=== PATIENT | female | born 1950 | race African-American/Black ===

== ENCOUNTER 2020-09-13 15:29 | Emergency (ER) | payer BC ==
[~2020-09-13] VITALS: Ht 157.5 cm; Wt 60.0 kg
[~2020-09-13 15:29] MED LIST: AMLO10TA80 PO; BISO1TAB37 PO; LISI10TA5 PO
[2020-09-13 15:31] VITALS: BP 149/65
[2020-09-13] MEDS ORDERED: MAGNESIUM/ALUMINUM HYDROXIDE/SIMETHICONE 30ML UDC PO STA (16:14)
[2020-09-13] MEDS ORDERED: VISCOUS LIDOCAINE 2% 15 ML UDC PO STA (16:14)
[2020-09-13] MEDS ORDERED: DICYCLOMINE 10 MG/5 ML ORAL SYR PO STA (16:14)
[2020-09-13 17:22] LABS: HEMOGLOBIN. 13.6 g/dL (12.0-16.0); MEAN CORPUSCULAR HEMOGLOBIN 29.4 pg (28.0-32.0); MEAN CORPUSCULAR VOLUME 88.6 fL (81.0-99.0); RED BLOOD CELL COUNT 4.62 mill/uL (4.2-5.4); RED CELL DISTRIBUTION WIDTH 15.2 % (11.6-14.6)
[2020-09-13 17:29] LABS: CHLORIDE 102 mEq/L (98-107)
[2020-09-13] MEDS ORDERED: LACTULOSE 20G/30ML UDC PO ONE (18:00)
[2020-09-13] MEDS ORDERED: MAGNESIUM CITRATE 300ML SOLUTION PO ONE (18:00)
[2020-09-13] MEDS ORDERED: SODIUM CHLORIDE 0.9% 1,000 ML IV ONE (18:00)
== END 2020-09-13 18:37 | disposition left against medical advice (07) ==
LOC: ER 15:29
DX: R10.9 Unspecified abdominal pain (principal); K59.00 Constipation, unspecified; I10 Essential (primary) hypertension; Z88.6 Allergy status to analgesic agent; Z98.890 Other specified postprocedural states
CPT/HCPCS: 36415; 74176; 80053; 83690; 85025; 93005; 99285; J7030

== ENCOUNTER 2022-12-10 03:57 | Emergency (ER) | payer BC ==
[~2022-12-10] VITALS: Ht 157.5 cm; Wt 59.0 kg
[~2022-12-10 03:57] MED LIST changes: +LISI10TA26 PO; -LISI10TA5 PO
[2022-12-10 04:56] LABS: HEMATOCRIT. 38.1 % (36.0-48.0); HEMOGLOBIN. 12.7 g/dL (12.0-16.0); MEAN CORPUSCULAR HEMOGLOBIN 29.5 pg (28.0-32.0); MEAN CORPUSCULAR VOLUME 88.3 fL (81.0-99.0); MEAN PLATELET VOLUME 10.4 fl (7.4-10.4); RED BLOOD CELL COUNT 4.31 mill/uL (4.2-5.4)
[2022-12-10 05:03] LABS: CLARITY URINE CLEAR (CLEAR); COLOR URINE YELLOW (YELLOW); KETONES URINE NEGATIVE (NEGATIVE); LEUKOCYTE ESTERASE URINE NEGATIVE (NEGATIVE); NITRITE URINE NEGATIVE (NEGATIVE); OCCULT BLOOD URINE NEGATIVE (NEGATIVE); PROTEIN URINE 1+ (NEGATIVE); SPECIFIC GRAVITY URINE 1.006 (1.005-1.030); UROBILINOGEN URINE 0.2 E.U./dL (0.2-1.0)
[2022-12-10 05:06] LABS: CHLORIDE 104 mEq/L (98-107)
[2022-12-10] MEDS ORDERED: OXYCODONE HCL/ACETAMINOPHEN 5/325MG TABLET PO ONE (05:15)
[2022-12-10] MEDS ORDERED: KETOROLAC 30MG/ML VIAL IV ONE (05:15)
[2022-12-10 06:25] LABS: PLATELET ESTIMATE NORMAL
[2022-12-10] MEDS ORDERED: TOPUD PO (08:05)
[2022-12-10 08:54] VITALS: BP 177/64
== END 2022-12-10 08:57 | disposition home or self-care (01) ==
LOC: ER 03:57
DX: S33.100A Subluxation of unspecified lumbar vertebra, initial encounter (principal); I10 Essential (primary) hypertension; Z88.5 Allergy status to narcotic agent; Z90.49 Acquired absence of other specified parts of digestive tract; X58.XXXA Exposure to other specified factors, initial encounter; Y93.89 Activity, other specified; Y92.89 Other specified places as the place of occurrence of the external cause; Y99.8 Other external cause status
CPT/HCPCS: 36415; 72100; 80053; 81003; 85025; 96374; 99284; J1885